=== PATIENT | female | born 1975 | race Caucasian/White ===

== ENCOUNTER 2017-01-17 05:02 | Day surgery (SDC) | payer MEDICARE, OTHER ==
[2017-01-16 11:25] LABS: HEMATOCRIT 39.8 % (36.0-48.0); HEMOGLOBIN 13.7 g/dL (12-16); MCH 32.6 pg (26.0-34.0); MCHC 34.4 g/dL (31.0-37.0); MCV 94.8 fL (80.0-100.0); MEAN PLATELET VOLUME 10.9 fL (7.4-10.4); RBC 4.2 10x6/uL (4.00-5.40); RDW 13.5 % (11.5-14.5); WBC 11.1 10x3/uL (4.8-10.8)
[~2017-01-17 05:02] MED LIST: COMPAZINE10 MG PO; FEXOFENADINE HC60 MG PO; INDERAL10 MG PO; INDOCIN25 MG PO; NEURONTIN 300300 MG PO; OXYCONTIN10 MG PO; PRINIVIL20 MG PO; TORADOL10 MG PO; ZANAFLEX4 MG PO
[2017-01-17 05:32] VITALS: BP 70/42; BMI 21.5
--- NOTE | 2017-01-17 08:30 | NUR ---
0810-RECD FROM PACU, DR ABBASI HERE TO REPORT TO FAMILY. 0820-TAKING SIPS OF CLEAR LIQUIDS WITHOUT NAUSEA.
--- NOTE | 2017-01-17 12:32 | OP ---
PATIENT NAME: EDWINA GARCIA MEDICAL RECORD: [id number] :75 LOCATION:[facility] ADMISSION DATE: SURGEON: KENYATTA ABBASI DPM DATE OF OPERATION: 01/17/2017 PREOPERATIVE DIAGNOSIS: Hallux abductovalgus, left foot. POSTOPERATIVE DIAGNOSIS: Hallux abductovalgus, left foot. PROCEDURE: Donovan bunionectomy, left foot. ANESTHESIA: General anesthesia with a local infiltrate, utilizing lidocaine and Marcaine plain, approximately 10 cc total. HEMOSTASIS: Left ankle tourniquet at 250 mmHg. PREOPERATIVE DETAILS: The patient was taken to the OR and placed on the operating table in supine position followed by induction of general anesthesia and infiltration of local anesthetic. The left extremity was then prepped and draped in the usual aseptic technique followed by exsanguination of extremity and inflation of tourniquet. A 15 blade was used to create a 3.5 to 4 cm linear incision over dorsal aspect of the first ray extending to the base of the proximal phalanx of the hallux. The incision deepened down through subcutaneous tissue being sure to avoid all vital structures. Dissection was carried down to the first MPJ where an inverted L capsulotomy was performed. The media capsular flap was reflected and the head of the first metatarsal was delivered. A sagittal saw was used to resect the medial eminence. Attention was then directed to the first interspace where a lateral release was performed. Good clinical reduction of the lateral contracture was verified. Attention was then redirected to the medial aspect of the head of the first metatarsal where a sagittal saw was used to create a V osteotomy through and through. The capital fragments translocated laterally and fixated with a 0.062 inch K-wire. The pin was cut. The medial redundant shelf was resected. The wound was flushed. The capsule was repaired with 2-0 Vicryl, the subcutaneous tissue with 4-0 Vicryl and the skin was closed with 5-0 Prolene in a subcuticular technique followed by Dermabond, Adaptic, 4 x 4 and Conform were used to dress the wound followed by Coban. Tourniquet was deflated. POSTOPERATIVE DETAILS: The patient tolerated the procedure well and left the OR with vital signs stable and vascular status at preop levels. The patient was transported to recovery per anesthesia in stable condition. TRANSINT:[id number] Voice Confirmation ID: [id number] DOCUMENT ID: [id number] KENYATTA ABBASI DPM at 1232 CC: [id number] DICTATION DATE: 01/17/17805 LEAF CONDITIONER: 01/17/17823 [facility] [address] [id number]
--- NOTE | 2017-01-17 16:02 | NUR ---
0945--PT COMPLAINS OF PAIN, PERCOCET 10/325MG GIVEN PO FOR PAIN. DISCHARGE INSTRUCTIONS GIVEN, PT VERBALIZES UNDERSTANDING. PT WAITING FOR CRUTCHES, FROM [facility]. [facility] 2400--DISCHARGE INSTRUCTIONS GIVEN, PT VERBALIZES UNDERSTANDING. PT OFF UNIT VIA . [facility]
== END 2017-01-17 09:45 | disposition home or self-care (01) ==
LOC: D.OPS 05:02 → D.PAN 08:15 → D.OPS 09:45
PROVIDERS: Anesthesiology
DX: M20.12 Hallux valgus (acquired), left foot (principal); F17.200 Nicotine dependence, unspecified, uncomplicated; Z01.812 Encounter for preprocedural laboratory examination

== ENCOUNTER → 2017-06-06 16:55 | Outpatient (CLI) | payer MEDICARE, OTHER ==
[2017-06-06 19:18] LABS: CHOL - HDL RATIO 4.4 ratio (2.3-4.1)
[2017-06-06 20:11] LABS: ERYTHROCYTE SEDIMENTATION RATE 6 mm/hr (0-20)
[2017-06-08 10:20] LABS: ANA REFLEX - DIRECT Negative (Negative)
== END | disposition home or self-care (01) ==
LOC: D.LABREF 16:55
PROVIDERS: Internal Medicine Cardiovascular Disease
DX: I10 Essential (primary) hypertension (principal)

== ENCOUNTER → 2017-07-11 17:47 | Outpatient (CLI) | payer MEDICARE, OTHER ==
[2017-07-11 19:25] LABS: CHOL - HDL RATIO 3.4 ratio (2.3-4.1); LDL-HDL RATIO 2.1 ratio (1.5-3.5)
== END | disposition home or self-care (01) ==
LOC: D.LABREF 17:47
PROVIDERS: Internal Medicine Cardiovascular Disease
DX: E78.5 Hyperlipidemia, unspecified (principal)

== ENCOUNTER 2019-01-29 05:00 | Day surgery (SDC) | payer MEDICARE, OTHER ==
[2019-01-28 09:40] LABS: HEMATOCRIT 41.9 % (36.0-48.0); HEMOGLOBIN 14.6 g/dL (12-16); MCH 33.7 pg (26.0-34.0); MCHC 34.8 g/dL (31.0-37.0); MCV 96.8 fL (80.0-100.0); MEAN PLATELET VOLUME 10.6 fL (7.4-10.4); RBC 4.33 10x6/uL (4.00-5.40); RDW 13.8 % (11.5-14.5); WBC 15.4 10x3/uL (4.8-10.8)
[~2019-01-29] VITALS: Ht 162.6 cm; Wt 56.7 kg
[~2019-01-29 05:00] MED LIST changes: +ATARAX 25 MG TA25 MG PO; +CELEXA10 MG PO; +PREDNISONE20 MG PO; +ZONEGRAN100 MG PO
[2019-01-29 06:40] VITALS: BP 151/97; Ht 162.6 cm; Wt 56.7 kg
--- NOTE | 2019-01-29 08:12 | NUR ---
XRAY ORDERED AND COMPLETED PER . ICE APPLIED TO R.FOOT ALONG WITH POST OP SHOE AND ELEVATED.
--- NOTE | 2019-02-05 08:00 | OP ---
PATIENT NAME: EDWINA GARCIA MEDICAL RECORD: [id number] :75 LOCATION:[facility] ADMISSION DATE: SURGEON: KENYATTA ABBASI DPM DATE OF OPERATION: 01/29/2019 PREOPERATIVE DIAGNOSIS: HAV, right foot. POSTOPERATIVE DIAGNOSIS: HAV, right foot. PROCEDURE: Donovan bunionectomy, right foot. ANESTHESIA: Local with IV sedation. HEMOSTASIS: Right thigh tourniquet at 350 mmHg. PREOPERATIVE DETAILS: The patient was taken to the OR and placed on the operating table in a supine position. This was followed by induction of general anesthesia and infiltration of local anesthetic. The right extremity was then prepped and draped in the usual aseptic technique, followed by exsanguination and inflation of tourniquet. A 15 blade was used to create a 3.5-4 cm linear incision over the dorsal aspect of the first MPJ. Incision was deepened down through subcutaneous tissue being sure to avoid all vital structures. Dissection was carried down to the first MPJ, where an inverted-L capsulotomy was performed. The medial capsular flap was reflected and the head of the first metatarsal was delivered. A sagittal saw was used to resect the medial eminence. Attention was then directed to the first interspace, where a lateral release was performed. Good clinical reduction of lateral contracture was verified. Attention was then redirected to the medial aspect of the head of the first metatarsal, where a V-osteotomy was made through and through. The capital fragment was translocated laterally and fixated with a 0.062 inch K-wire. The pin was cut. The medial redundant shelf was resected with a bone saw. The wound was flushed. The capsule was repaired with 2-0 Vicryl, the subcutaneous tissue was repaired with 4-0 Rapide, and the skin was closed with 4-0 Rapide in a subcuticular technique, followed by Dermabond. Adaptic, 4 x 4, and Conform were used to dress the wound, followed by Coban. Tourniquet was deflated. POSTOPERATIVE DETAILS: The patient tolerated the procedure well and left the OR with vital signs stable and vascular status at preoperative levels. The patient was transported to recovery per anesthesia in stable condition. TRANSINT:[id number] Voice Confirmation ID: [id number] DOCUMENT ID: [id number] KENYATTA ABBASI DPM at 0800 CC: [id number] DICTATION DATE: 01/29/19 0752 [facility] [employer] [facility] FORMER: 01/29/19 08 [facility] 01/29/19 [facility] [address] [place] [address]
== END 2019-01-29 09:35 | disposition home or self-care (01) ==
LOC: D.OPS 05:00 → D.PAN 07:00 → D.OPS 07:00
PROVIDERS: Anesthesiology; ATTEND Podiatrist
DX: M20.11 Hallux valgus (acquired), right foot (principal)

== ENCOUNTER → 2019-02-20 15:34 | Outpatient (CLI) | payer MEDICARE, OTHER ==
[2019-01-29 06:40] VITALS: BMI 21.5
[2019-02-20 16:09] LABS: BASOPHILS 0.5 % (0-2); EOSINOPHILS 1.4 % (0-7); HEMATOCRIT 40.9 % (36.0-48.0); HEMOGLOBIN 13.7 g/dL (12-16); IMMATURE GRANULOCYTES 0.3 % (0-5); LYMPHOCYTES 24.4 % (15-50); MCH 33.3 pg (26.0-34.0); MCHC 33.5 g/dL (31.0-37.0); MCV 99.5 fL (80.0-100.0); MEAN PLATELET VOLUME 9.8 fL (7.4-10.4); MONOCYTES 6.9 % (2-11); NEUTROPHILS 66.5 % (40-80); PLATELET COUNT 354 10x3/uL (130-400); RBC 4.11 10x6/uL (4.00-5.40); RDW 13.8 % (11.5-14.5); WBC 7.9 10x3/uL (4.8-10.8)
[2019-02-20 16:20] LABS: APTT 29.3 SECONDS (22.8-39.4); INR 0.91 (0.85-1.17); PROTIME 11.8 SECONDS (11.6-15.0)
[2019-02-20 16:24] LABS: ALBUMIN 3.2 g/dL (3.4-5.0); ALKALINE PHOSPHATASE 84 U/L (46-116); ALT (SGPT) 27 U/L (10-68); CALC OSMOLALITY 283 mosm/kg (275-300); CALCIUM 8.5 mg/dL (8.5-10.1); CARBON DIOXIDE 25.3 mmol/L (21.0-32.0); CHLORIDE - SERUM 105 mmol/L (98-107); CREATININE - SERUM 0.8 mg/dL (0.6-1.3); GLUCOSE 176 mg/dL (74-106); POTASSIUM - SERUM 4.1 mmol/L (3.5-5.1); PROTEIN - SERUM 6.5 g/dL (6.4-8.2); SODIUM 139 mmol/L (136-145); UREA NITROGEN 19 mg/dL (7-18); eGFR NON AFRICAN AMERICAN 82 mL/min (90-120)
== END | disposition home or self-care (01) ==
LOC: D.LAB 15:34
DX: Z01.818 Encounter for other preprocedural examination (principal); G57.50 Tarsal tunnel syndrome, unspecified lower limb; M54.12 Radiculopathy, cervical region; M53.3 Sacrococcygeal disorders, not elsewhere classified; Z79.01 Long term (current) use of anticoagulants; M96.1 Postlaminectomy syndrome, not elsewhere classified; M54.16 Radiculopathy, lumbar region; M48.07 Spinal stenosis, lumbosacral region; R73.09 Other abnormal glucose; Z22.322 Carrier or suspected carrier of Methicillin resistant Staphylococcus aureus